=== PATIENT | male | born 1995 | race African-American/Black ===

== ENCOUNTER 2017-09-28 22:03 | Emergency (ER) | payer SELFPAY ==
[~2017-09-28] VITALS: Ht 185.4 cm; Wt 81.6 kg
[2017-09-28 22:30] VITALS: Ht 185.4 cm; Wt 81.6 kg
== END 2017-09-29 01:39 | disposition other institution (70) ==
LOC: ED 22:03
DX: S00.81XA Abrasion of other part of head, initial encounter (principal); F10.129 Alcohol abuse with intoxication, unspecified; V49.9XXA Car occupant (driver) (passenger) injured in unspecified traffic accident, initial encounter; Y92.410 Unspecified street and highway as the place of occurrence of the external cause; Y93.79 Activity, other specified sports and athletics; Y99.8 Other external cause status

== ENCOUNTER 2017-09-28 22:03 | Emergency (ER) | payer OTHER | END 2017-09-29 01:39 | disposition other institution (70) | LOC: ED 22:03 | DX: Z02.89 Encounter for other administrative examinations (principal) ==